=== PATIENT | female | born 1985 | race Caucasian/White ===

== ENCOUNTER 2019-02-05 22:56 | Observation (INO) | payer SELFPAY ==
[2019-02-05] MEDS ORDERED: Lactated Ringers 1,000 ML IV SCH (23:45)
[2019-02-05] MEDS ORDERED: Sodium Chloride 0.9% 10 ML Syringe FLUSH PRN (23:54)
[2019-02-05] MEDS ORDERED: Sodium Chloride 0.9% 10 ML SDV IV PRN (23:54)
[2019-02-05] MEDS ORDERED: Sodium Chloride 0.9% 2.5 ML Syringe FLUSH PRN (23:54)
[2019-02-05] MEDS ORDERED: Promethazine 25 MG/ML SDV IM PRN (23:56)
[2019-02-05] MEDS ORDERED: Butorphanol 1 MG/ML SDV IVPUSH ONE (23:57)
== END 2019-02-06 01:52 | disposition home or self-care (01) ==
LOC: MW.OB 22:56
PROVIDERS: ADMIT Obstetrics & Gynecology; ATTEND Obstetrics & Gynecology
DX: O47.03 False labor before 37 completed weeks of gestation, third trimester (principal); Z3A.33 33 weeks gestation of pregnancy; Z90.712 Acquired absence of cervix with remaining uterus; Z85.41 Personal history of malignant neoplasm of cervix uteri
CPT/HCPCS: 59025; J0595; J2550; J7120